=== PATIENT | female | born 1975 | race Two or more races ===

== ENCOUNTER 2025-07-06 14:21 | Emergency (ER) | payer MEDICAID ==
[~2025-07-06] VITALS: Ht 165.1 cm; Wt 83.0 kg
[~2025-07-06 14:21] MED LIST: ATEN25TA PO; BENA20TA9 PO
[2025-07-06] MEDS ORDERED: IBUPROFEN 600 MG TABLET ONE (16:00)
[2025-07-06] MEDS: IBUPROFEN 600 MG TABLET PO ONE (16:03)
[2025-07-06] MEDS ORDERED: CYCL10TA9 PO (18:23)
[2025-07-06] MEDS ORDERED: NAPR-1164 PO (18:23)
[2025-07-06 18:31] VITALS: BP 111/79; TEMP 98.3; O2SAT 98
== END 2025-07-06 18:33 | disposition home or self-care (01) ==
LOC: ER 14:23
DX: S50.01XA Contusion of right elbow, initial encounter (principal); S70.01XA Contusion of right hip, initial encounter; I10 Essential (primary) hypertension; Z79.899 Other long term (current) drug therapy; W01.0XXA Fall on same level from slipping, tripping and stumbling without subsequent striking against object, initial encounter; Y93.89 Activity, other specified; Y92.59 Other trade areas as the place of occurrence of the external cause; Y99.8 Other external cause status
CPT/HCPCS: 73080-TC; 73552